=== PATIENT | male | born 1960 | race Caucasian/White ===

== ENCOUNTER → 2016-11-27 | Outpatient (CLI) | payer MEDICAID ==
[~2016-11-27] MED LIST: ASPI-496; BUME1TAB21; CARV12.52; POTA10TA12; RANI150T4; SIMV40TA3; lisinopril
== END | disposition home or self-care (01) ==
LOC: CFH 14:29
PROVIDERS: ATTEND Internal Medicine Cardiovascular Disease
DX: Z95.2 Presence of prosthetic heart valve (principal)
CPT/HCPCS: 93306